=== PATIENT | female | born 1990 | race Caucasian/White ===

== ENCOUNTER 2016-12-19 17:04 | Emergency (ER) | payer BC ==
[~2016-12-19] VITALS: Ht 157.5 cm; Wt 68.2 kg
[2016-12-19] MEDS ORDERED: VIORELE 0.15 MG1 TAB PO (17:10)
[2016-12-19 18:54] LABS: HEMATOCRIT 44.3 % (37.0-47.0); HEMOGLOBIN 14.7 g/dl (12.5-16.0); MEAN CELL VOLUME 82 fl (80.0-100.0); MEAN CORPUSCULAR HEMOGLOBIN 27 pg (27.0-31.0); MEAN CORPUSCULAR HGB CONC 33 g/dl (33.0-37.0); MEAN PLATELET VOLUME 9.4 fl (7.4-10.4); PLATELET COUNT 294 K/mm3 (130-400); RED BLOOD COUNT 5.42 M/mm3 (4.10-5.30); REDCELL DISTRIBUTION WIDTH-CV 14.5 % (11.5-14.5); WHITE BLOOD COUNT 15.1 K/mm3 (4.8-10.8)
[2016-12-19 18:56] LABS: ADD PATHOLOGY DIFF REVIEW NO
[2016-12-19 19:03] LABS: ADJUSTED CALCIUM 9.3 mg/dL (8.4-10.2); ALBUMIN 4.1 gm/dL (3.5-5.0); BILIRUBIN,TOTAL 5.2 mg/dL (0.0-1.0); CALCIUM 9.4 mg/dL (8.4-10.2); CREATININE, serum 0.63 mg/dL (0.52-1.25); POTASSIUM 3.6 mmol/L (3.4-5.0); TOTAL PROTEIN 8.5 gm/dL (6.4-8.2)
[2016-12-19 19:20] LABS: PROTHROMBIN TIME 10.5 SECONDS (9.7-12.8)
[2016-12-19 19:22] LABS: PARTIAL THROMBOPLASTIN TIME 35.2 SECONDS (26.0-37.0)
[2016-12-19 19:44] LABS: BAND 6 % (0-10); NEUTROPHILS 5 % (42.0-75.2); PLATELET ESTIMATE NORMAL (NORMAL); TOTAL CELLS COUNTED 100
[2016-12-19 19:49] VITALS: BP 118/85; PULSE 89; TEMP 97.2
== END 2016-12-19 19:58 | disposition home or self-care (01) ==
LOC: COL.ER 17:04
PROVIDERS: Physician Assistant
DX: B17.8 Other specified acute viral hepatitis (principal); B27.09 Gammaherpesviral mononucleosis with other complications; R21 Rash and other nonspecific skin eruption

== ENCOUNTER 2019-04-27 23:40 | Outpatient (CLI) | payer BC ==
[~2019-04-27] VITALS: Ht 157.5 cm; Wt 85.9 kg
[~2019-04-27 23:40] MED LIST: VIORELE 0.15 MG1 TAB PO
[2019-04-27] MEDS ORDERED: PRENATAL MVI (23:54)
[2019-04-28] MEDS ORDERED: CALCIUM CARBON650 M2 (00:01)
[2019-04-28 00:30] VITALS: BP 117/77; PULSE 90; TEMP 98.3
[2019-04-28 01:00] VITALS: BP 100/62; PULSE 68
[2019-04-28 01:30] VITALS: BP 115/76; PULSE 75
[2019-04-28 02:30] VITALS: BP 102/59; PULSE 72
[2019-04-28 02:47] VITALS: BP 132/86; PULSE 76
--- NOTE | 2019-04-28 03:00 | NUR ---
2345- Patient ambulatory to LDR-6 from ED with and eeg technologist. Patient and oriented to room. Patient into restroom to change into gown. 2357- EFM and TOCO on and tracing. Assessment completed. Patient here with complaints of contractions starting 04/27/19 at 0100. Patient says contractions have increased in intensity since 2129 and are coming every 3-7 minutes and lasting 30-45 seconds at a time. Patient is still able to walk, talk, and breathe through these contractions at this time. Patient reports losing her mucus plug 04/27/19 in the morning. Patient denies LOF, bleeding, or spotting. 0000- SVE 2-3/50/-3 by AFRICA Boss. 0115- SVE 2-/75/-3 by AFRICA Boss. 0135- EFM and TOCO off. Patient ambulating halls. 0215- EFM and TOCO on and tracing. 0230- SVE 75/-3 by this RN. 0245- See Physician Notification. 0250- Early labor instructions explained in depth to patient and spouse. Patient given the option to stay another hour and be rechecked or discharge home. Patient would like to go home and labor at home if this is the early stages of labor. Patient educated on when it's time to return to hospital for labor. Questions encouraged and answered. 0300- Patient and spouse ambulatory off unit with discharge instructions.
== END 2019-04-28 03:00 | disposition home or self-care (01) ==
LOC: LDRO 23:40
DX: O62.9 Abnormality of forces of labor, unspecified (principal); Z3A.40 40 weeks gestation of pregnancy

== ENCOUNTER 2019-04-28 09:05 | Inpatient (IN) | payer BC ==
[2019-04-28] VITALS (34 sets, daily range): BP systolic 87–130; BP diastolic 54–82; PULSE 70–101; TEMP 98.1–98.5
[~2019-04-28] VITALS: Ht 154.9 cm; Wt 84.1 kg
[~2019-04-28 09:05] MED LIST changes: +CALCIUM CARBON650 M2; +PRENATAL MVI
--- NOTE | 2019-04-28 09:10 | NUR ---
0910- Patient arrives ambulatory with spouse with complaints of continued contractions around every 5 minutes and possible SROM at 0800. Patient reports scant old blood noted following vaginal exams from overnight labor check. Patient reports normal movement. Changes into gown, EFM explained and placed. VSS. Patient updated on plan of care. 09- Amniotrace positive, SVE per Gerald Medina RN 3-4/100/-1. SVE notes a forebag of membranes. Pericare given and patient repositioned sitting upright. Dr. Ghosh notified by Gerald Medina RN, reviewed patient arrival and complaint of continued contractions and SROM at 0800. Reviewed SVE and FHR strip/contraction pattern. Patient desires epidural but is not ready for one at this time. Admit orders recieved, patient may have epidural when desired. 09- IV started in LFA, labs obtained. LR infusing per protocol. Consents explained and signed. Patient denies questions. Encouraged to notify RN when epidural is desired. Breathing through contractions. Call light in reach. at bedside.
[2019-04-28 09:57] LABS: BASO % 0.3 % (0.0-2.0); EOS # 0.1 (0.0-0.7); EOS % 0.5 % (0-4.0); GRAN # 12.2 (1.4-6.5); GRAN % 79.4 % (42.2-75.2); HEMATOCRIT 37.6 % (37.0-47.0); LYMPH % 13.2 % (20.0-51.0); MEAN CELL VOLUME 78 fl (80.0-100.0); MEAN CORPUSCULAR HEMOGLOBIN 25 pg (27.0-31.0); MEAN CORPUSCULAR HGB CONC 32 g/dl (33.0-37.0); MONO # 0.9 (0.1-0.6); PLATELET COUNT 277 K/mm3 (130-400); RED BLOOD COUNT 4.84 M/mm3 (4.10-5.30); REDCELL DISTRIBUTION WIDTH-CV 15.4 % (11.5-14.5)
--- NOTE | 2019-04-28 10:40 | NUR ---
Patient requesting to ambulate in hallway. Off EFM for bathroom and to ambulate.
--- NOTE | 2019-04-28 11:05 | NUR ---
Patient requesting epidural. Mark Duncan TRAFFIC SIGNAL REPAIRER notified. LR bolus infusing, patient continues to ambulate in room per request.
--- NOTE | 2019-04-28 11:40 | NUR ---
1140- Mark Duncan NET FINISHER at bedside. Patient sitting upright in bed for placement. 1150- Single shot per epidural by Mark Duncan CRNA. Patient tolerates well. 1153- Epidural test dose. See anesthesia record. 1155- Patient repositioned WL following epidural. Patient updated on plan of care and safety reviewed.
--- NOTE | 2019-04-28 12:35 | NUR ---
Discussing plan of care for Pitocin augmentation per provider. Patient agrees and denies questions. Pitocin started at 2 mU per protocol and order.
--- NOTE | 2019-04-28 13:32 | NUR ---
1332- Prolonged FHR deceleration noted lasting approximately seven minutes. FHR intermittently to 70 bpm with brief returns to baseline during deceleration. Patient repositioned LL, SVE 6-7/100/+1 with bloody show noted at 1334, Pitocin discontinued and LR bolus infusing. 1336- Patient repositioned RL, Oxygen via simple mask at 10L. FHR returns to baseline at 1339 with recurrent early decelerations noted following. Patient updated on plan of care. Reports feeling pressure with contractions. Will update physician.
--- NOTE | 2019-04-28 15:00 | NUR ---
Patient reports increased pressure. SVE 9/100/+1. See physician notification.
--- NOTE | 2019-04-28 15:55 | NUR ---
1555- Patient reports increased pressure. SVE 10/+1. See physician notification. Wills catheter removed prior to pushing. Pericare given. 1612- Patient begins pushing with contractions with RN at bedside.
--- NOTE | 2019-04-28 16:15 | NUR ---
Dr. Ghosh at bedside to assess pushing efforts.
--- NOTE | 2019-04-28 17:25 | NUR ---
1725- Dr. Ghosh at bedside. Patient prepped for delivery and assisted to footplates. Nursery RN to bedside. 1734- of viable female attended by Dr. Ghosh. to mothers abdomen, care of patient to Nena Jenkins RN. Apgars 8//9. 1735- Spont. delivery of placenta. Pitocin bolus infusing at 333 ml/hr/protocol. Fundal massage by RN, firm at umbilicus. Pericare given and ice pack to perineum following second degree perineal laceration repair by Dr. Ghosh. Patient udpated on plan of care and safety.
[2019-04-29] VITALS: BP 119/73; PULSE 100; TEMP 97.7
[2019-04-29 04:00] VITALS: BP 91/65; PULSE 97; TEMP 98.3
[2019-04-29 09:00] VITALS: BP 124/84; PULSE 74
[2019-04-29 16:30] VITALS: BP 123/73; PULSE 91
[2019-04-29 20:00] VITALS: BP 107/63; PULSE 81; TEMP 98.5
[2019-04-30 06:55] VITALS: BP 116/75; PULSE 75; TEMP 97.6
[2019-04-30] MEDS ORDERED: MOTRIN 800800 MG/TAB PO (10:44)
--- NOTE | 2019-04-30 11:38 | NUR ---
Initial visit; Parents thanked Travel Attendants for offering congratulations and God's blessings for the of their daughter. Travel Attendants thanked family for choosing [facility].
--- NOTE | 2019-04-30 12:35 | NUR ---
Patient given discharge instructions. Reviewed reasons to call or return. Patient denies questions and leaves ambulatory with spouse.
== END 2019-04-30 12:35 | disposition home or self-care (01) | DRG 807 ==
LOC: LDRO 09:05 → LDR 09:15 → OB 20:30
PROVIDERS: Obstetrics & Gynecology; ADMIT Obstetrics & Gynecology
PROC: 10E0XZZ Delivery of Products of Conception, External Approach (ICD-10-PCS; principal; 2019-04-28)
PROC: 0KQM0ZZ Repair Perineum Muscle, Open Approach (ICD-10-PCS; 2019-04-28)
DX: O48.0 Post-term pregnancy (principal); Z37.0 Single live birth; Z3A.40 40 weeks gestation of pregnancy; O70.1 Second degree perineal laceration during delivery
CPT/HCPCS: J2590; J2791; J2795; J7120

== ENCOUNTER 2022-01-23 05:17 | Inpatient (IN) | payer OTHER ==
[~2022-01-23] VITALS: Ht 157.5 cm; Wt 81.4 kg
[2022-01-23] VITALS (30 sets, daily range): BP systolic 98–137; BP diastolic 55–86; PULSE 72–107; TEMP 97.9–98.9
[~2022-01-23 05:17] MED LIST changes: +MOTRIN 800800 MG/TAB PO
--- NOTE | 2022-01-23 05:30 | NUR ---
G2L1 at 40 weeks and 2 days arrives to unit with complaint of contractions every 3-4 minutes since 2300. Pt reports good movement, denies vaginal bleeding, and some small leakage of fluid. Pt denies problems this . Pt oriented to room, call light within reach, bed in low and locked position. US and toco explained and applied. Clean gown on. Admission assessment started. Vital signs obtained. SVE 6/90/-2, membranes intact, head palpated on exam. Dr. Hancock notified, see physician notification.
--- NOTE | 2022-01-23 06:00 | NUR ---
18G IV started in left forearm with 1 attempt. Admission labs obtained off IV start. Lactated Ringers infusing to gravity.
[2022-01-23 06:19] LABS: BASO % 0.3 % (0.0-2.0); EOS # 0.1 K/mm3 (0.0-0.7); EOS % 0.7 % (0.0-4.0); GRAN # 9.4 K/mm3 (1.4-6.5); GRAN % 68.8 % (42.2-75.2); HEMOGLOBIN 13.3 g/dl (12.5-16.0); LYMPH % 22.3 % (20.0-51.0); MEAN CELL VOLUME 83 fl (80.0-100.0); MEAN CORPUSCULAR HEMOGLOBIN 28 pg (27-31); MEAN CORPUSCULAR HGB CONC 34 g/dl (33.0-37.0); MEAN PLATELET VOLUME 9.8 fl (7.4-10.4); MONO # 0.9 K/mm3 (0.1-0.6); MONO % 6.8 % (1.7-9.3); PLATELET COUNT 266 K/mm3 (130-400); RED BLOOD COUNT 4.69 M/mm3 (4.10-5.30); REDCELL DISTRIBUTION WIDTH-CV 13.6 % (11.5-14.5)
[2022-01-23] MEDS ORDERED: MAGNESIUM250 M1 PO (06:25)
--- NOTE | 2022-01-23 06:25 | NUR ---
0625-Patient sitting upright for epidural placement. GRETEL Gutierrez to patient room. 0635-Test dose administered by GRETEL Gutierrez. Patient tolearated procedure well. Repositioned WR. Updated on plan of care and safety.
--- NOTE | 2022-01-23 10:35 | NUR ---
1035-Dr. Hancock to patient room. SVE by MD following this RN. 8-/-2. Pit started per MD order. Repositioned to with RL in [facility]. 1100-Patient calls out reports increased pressure. SVE /0, updated MD.
--- NOTE | 2022-01-23 11:05 | NUR ---
1105-Set up for delivery, awaiting MD. 1120-Returned call to MD to report patients increased pressure and station now +2. MD reports in route to unit. 1129-Dr. Hancock on unit. 1133-Patient begins pushing with Dr. Hancock at bedside. Moves vertex well. 1144-Spontaneous delivery of head immediately followed by body. Viable male to mothers chest. Cord clamped x2 and cut by MD. Care of assumed by AFRICA Peñaloza. Apgars 8//9. 1148-Spontaneous delivery of intact placenta by Dr. Hancock. Fundal massage firm. Lochia WNL. EBL 100ml. Pitocin bolus per MD order and protocol. Superficial perineal laceration repaired by MD. Lorri care provided. Updated on plan of care and safety.
--- NOTE | 2022-01-23 15:20 | NUR ---
1520-Patient to bedpan, easily voids 350ml Lorri care provided. Updated on plan of care and safety. Awaiting LLE to pass lift and hold screen prior to moving to room following epidural.
[2022-01-24 00:34] VITALS: BP 104/72; PULSE 70; TEMP 98
[2022-01-24 06:45] VITALS: BP 120/81; PULSE 76; TEMP 97.7
[2022-01-24] MEDS ORDERED: MOTRIN 600600 MG/TAB PO (09:08)
--- NOTE | 2022-01-24 13:30 | NUR ---
1330-Reviewed discharge instructions with patient and spouse. Denies questions. Updated on need to attend six week apt with Anna at [facility]. Verbalized understanding. 1450-Ambulatory off unit with and spouse.
== END 2022-01-24 14:50 | disposition home or self-care (01) | DRG 807 ==
LOC: LDRO 05:17 → LDR 05:47 → OB 19:00
PROVIDERS: Obstetrics & Gynecology; ADMIT Obstetrics & Gynecology
PROC: 10E0XZZ Delivery of Products of Conception, External Approach (ICD-10-PCS; principal; 2022-01-23)
PROC: 0HQ9XZZ Repair Perineum Skin, External Approach (ICD-10-PCS; 2022-01-23)
DX: O48.0 Post-term pregnancy (principal); Z37.0 Single live birth; O43.123 Velamentous insertion of umbilical cord, third trimester; O70.9 Perineal laceration during delivery, unspecified; Z3A.40 40 weeks gestation of pregnancy
CPT/HCPCS: J2590; J2791; J7120